=== PATIENT | female | born 1975 | race Caucasian/White ===

== ENCOUNTER 2016-12-03 08:57 | Day surgery (SDC) | payer OTHER ==
[~2016-12-03] VITALS: Ht 162.6 cm; Wt 79.1 kg
[2016-12-03 09:13] VITALS: BP 126/77; PULSE 89; RESP 20; TEMP 98.4; O2SAT 97
[2016-12-03] MEDS ORDERED: PROM12.54 PO (09:21)
[2016-12-03] MEDS ORDERED: OXYC1TAB36 PO (09:21)
[2016-12-03] MEDS ORDERED: MS C15TA2 PO (09:21)
[2016-12-03] MEDS ORDERED: ALPR.5 PO (09:21)
[2016-12-03] MEDS ORDERED: SODIUM CHLOR 0.9% 1000 ML IV SCH (09:30)
--- NOTE | 2016-12-03 11:50 | RADRPT ---
EXAM DATE/TIME: 12/03/2016 10:35 [place] COMPARISON: No previous studies available for comparison. INDICATIONS : Liver biopsy request FINDINGS: The patient outside films were reviewed. These demonstrated 3 small lesions within the liver. The patient was placed on the CT scanner. Noncontrast CT imaging through the liver was performed. The lesions are not visible by noncontrast imaging. Due to their small size random targeting of the lesi ons would not be appropriate. Patient will need followup MRI or post contrast CT imaging and PET imaging to assess these for stabil ity. CONCLUSION: 1. The patient's small liver lesions identified on the outside CT and MR are not visible by noncontra st CT. No biopsy could be performed. Matthew Beckham MD on December 03, 2016 at 11:47 Board Certified Radiologist. This report was verified electronically.
== END 2016-12-03 11:05 | disposition home or self-care (01) ==
LOC: HRAD 08:57 → HRIP 09:01 → HRAD 11:05
PROVIDERS: ATTEND Obstetrics & Gynecology Gynecologic Oncology
DX: K76.9 Liver disease, unspecified (principal); Z53.8 Procedure and treatment not carried out for other reasons
CPT/HCPCS: J7030